=== PATIENT | female | born 1985 ===

== ENCOUNTER 2016-10-02 11:20 | Emergency (ER) | payer MEDICAID | END 2016-10-02 13:50 | disposition home or self-care (01) | LOC: H.EROB2 11:20 | DX: O47.1 False labor at or after 37 completed weeks of gestation (principal); Z3A.39 39 weeks gestation of pregnancy ==

== ENCOUNTER 2016-10-15 16:48 | Emergency (ER) | payer MEDICAID ==
--- NOTE | 2016-10-15 17:19 | OBHP ---
Datetime: 10/02/2016 19:48 IP Adm Impression: Term, intrauterine ; No Active Labor; Intact Membranes IP Admit Plan: Observation/Evaluation; Discharge home Admit Comment, IP Provider: at 39 weeks gestational age presents to the ED complaining of cont ractions. Patient denies any vaginal bleeding or leakage of fluids. Otherwise, patient without compla ints. records reviewed. course unremarkable. Past medical history none Past surgical history none Medications vitamins No known drug allergies Obstetrical history Social history no tobacco, no drugs, no alcohol Assessment: at 39 weeks gestational age, no evidence of labor at this time. Maternal well-being and feta l well-being reassuring at this time. Plan: Patient discharged home with labor precautions. Patient will follow up with clinic as scheduled. D iscussed plan with patient and all questions answered. Pelvic Type - PN: Adequate Extremities - PN: Normal Abdomen - PN: Normal Back - PN: Normal Breast - PN: Normal Lungs - PN: Normal Heart - PN: Normal Thyroid - PN: Normal Neurologic - PN: Normal HEENT - PN: Normal General - PN: Normal FHR - Baseline A Provider: 120s-130s Membranes, Provider: Intact Comments, ACOG Physical Exam: Cervix long, closed, posterior. Pool Provider: Negative IP Hx Assessment: The History has been Reviewed and is Current Vital Signs Provider: Reviewed; Within Normal Limits IP Chief Complaint: Uterine contractions NICHD Variability Prov Fetus A: Moderate 6-25bpm NICHD Accel Fetus A IP Provider: [id number] FHR Category Provider Fetus A: Category I NICHD Decel Fetus A IP Provider: None Dilatation, Provider: 0 Effacement, Provider: 25 Station, Provider: -4 Genitourinary Exam: Normal DTRs - PN: Normal
== END 2016-10-15 17:35 | disposition home or self-care (01) ==
LOC: H.EROB2 16:48
DX: O47.1 False labor at or after 37 completed weeks of gestation (principal); Z3A.39 39 weeks gestation of pregnancy